=== PATIENT | female | born 1985 | race Caucasian/White ===

== ENCOUNTER 2017-06-10 14:38 | Inpatient (IN) ==
[2017-06-10] MEDS ORDERED: *HR* LORazepam 2 MG/ML VIAL IVP ONE (16:29)
[2017-06-10] MEDS ORDERED: Ondansetron 4 MG/2 ML VIAL IVP ONE (18:01)
[2017-06-10] MEDS ORDERED: *HR* HYDROmorphone (PF) 1 MG/ML SYRINGE IVP ONE ×3 (18:01→20:55)
--- NOTE | 2017-06-10 18:34 | Emergency Department Note ---
Disposition Clinical Impression: Herniation of intervertebral disc between L4 and L5, Intractable pain Disposition: Admitted As Inpatient Condition: Fair Referrals: Karin Ferguson, [facility] [Primary Care Provider] - Forms: ED Satisfaction Letter Time of Disposition: 19:06 Back Pain HPI - General Chief Complaint: ED Back Pain/Injury Stated Complaint: back pain Time Seen by Provider: 06/10/17 15:16 Source: patient Mode of arrival: ambulatory Limitations: no limitations Nursing Notes Reviewed: Yes Vital Signs Reviewed: Yes - History of Present Illness HPI Narrative: 31-year-old with severe low back pain going to the legs right greater than left. Patient has a history of a microdiscectomy a couple years ago. States the pain came back with a vengeance says she said it's worse now than it was before. Denies retention type symptoms denies any saddle anesthesia. Pt Subjective Complaint: back pain Onset (ago): day(s) (2 days) Duration: constant Similar Symptoms Previously: Yes Location: lumbar spine Pain Severity: severe Quality: sharp, aching Radiation: left leg, right leg Improves with: none Worsens with: movement Context: other (Previous disc herniation) Associated symptoms: Denies: incontinence of bowel/bladder Treatments prior to arrival: NSAIDS - Related Data Home Medications Medication Instructions Recorded Confirmed Estradiol [Climara] 1 patch TD TU 12/29/15 06/03/17 ALPRAZolam [Xanax 1 MG Tablet] 1 mg PO QID 10/26/16 06/03/17 Dicyclomine [Bentyl] 10 mg PO QID PRN 10/26/16 06/03/17 Gabapentin [Neurontin] 800 mg PO TID 10/26/16 06/03/17 Albuterol Sulfate [Albuterol 1 puff IH Q4H PRN 06/03/17 06/03/17 Inhaler] Baclofen [Lioresal] 10 mg PO TID 06/03/17 06/03/17 Previous Rx's Medication Instructions Recorded Tramadol HCl [Ultram] 50 mg PO QID PRN #14 tab 06/03/17 predniSONE [PredniSONE] 40 mg PO DAILY #10 tablet 06/03/17 Allergies Allergy/AdvReac Type Severity Reaction Status Date / Time Amoxicillin [From Augmentin] AdvReac See Verified 10/26/16 12:43 Comments clavulanic acid AdvReac See Verified 10/26/16 12:43 [From Augmentin] Comments All systems ED: reviewed and negative except as stated. Constitutional: Denies: fever, chills, weakness, weight change Eyes: Denies: eye pain, eye discharge, vision change ENT ED: Denies: ear pain, throat pain, dental pain, hearing loss, epistaxis, congestion, dysphagia Cardiovascular: Denies: chest pain, palpitations, dyspnea on exertion, edema, syncope Respiratory: Denies: cough, dyspnea, wheezes, hemoptysis, stridor Gastrointestinal: Denies: abdominal pain, nausea, vomiting, diarrhea, constipation, hematemesis, melena, hematochezia Genitourinary: Denies: dysuria, frequency, hematuria, discharge Musculoskeletal: Reports: back pain. Denies: neck pain, arthralgia, myalgia Integumentary: Denies: rash, abrasion, lesions Neurological: Denies: headache, weakness, numbness, paresthesias, confusion, abnormal gait, vertigo Psychiatric: Denies: anxiety, depression, suicidal thoughts, homicidal thoughts , auditory hallucinations, visual hallucinations Endocrine: Denies: fatigue Hematological/Lymphatic: Denies: easy bleeding, easy bruising Allergic/Immunologic: Denies: facial swelling, urticaria Past Medical History - Past Medical History Medical history: Reports: asthma, GERD Surgical history: Reports: cholecystectomy, orthopedic, other (L4-L5 microdiscectomy), MACKENZIE/BSO, other (Uterine ablation) Psychiatric history: Reports: anxiety, depression [employer] 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, other - Social History Smoking Status: Current every day smoker Smokeless Tobacco Status: No Alcohol use: Reports: none Drug use: Reports: none Physical Exam - General Limitations: no limitations General appearance: alert, in no apparent distress - Head Head exam: atraumatic, normocephalic, normal inspection - Eye Eye exam: Present: normal appearance, PERRL, EOMI - ENT ENT exam: normal exam, normal oropharynx, mucous membranes moist - Neck Neck exam: Present: normal inspection, full ROM, trachea midline - Chest Chest inspection: Present: normal inspection, symmetric chest wall rise - Respiratory Respiratory exam: Present: normal lung sounds bilaterally - Cardiovascular Cardiovascular exam: Present: regular rate, normal rhythm, normal heart sounds - Abdominal Exam Abdominal exam: Present: soft, Non-Tender. Absent: tenderness, distention, guarding, rebound, rigidity - Extremities Exam Extremities exam: Present: normal inspection, full ROM. Absent: tenderness, pedal edema - Expanded Lower Extremity Exam Neurovascular/Tendon exam: Absent: motor deficit, sensory deficit, tendon deficit Gait: antalgic - Back Exam Back exam: Present: paraspinal tenderness - Neurological Exam Neurological exam: Present: alert, oriented X3 - Psychiatric Psychiatric exam: Present: normal affect, normal mood - Skin Skin exam: Present: warm, dry, intact, normal color Course - Reevaluation(s) Reevaluation #1: 31-year-old female comes in with lower back pain radiates down the legs. Patient had a discectomy about 2 years ago. She comes in with recurrent symptoms although denies symptoms of cord compression. MRI shows a recurrent disc at L4-5 with L5 nerve root compression. Patient has severe pain will be admitted to Dr. Iniguez's service. Time: 19:06 - Consultations Consultation #1: Discussed with Dr. Iniguez, admit. Time: 19:05 Vital Signs Temperature 99.2 F 06/10/17 15:12 Pulse Rate 81 06/10/17 15:12 Respiratory Rate 18 06/10/17 15:12 Blood Pressure 159/103 06/10/17 15:12 O2 Sat by Pulse Oximetry 100 06/10/17 15:12 Temperature 99.2 F 06/10/17 15:12 Pulse Rate 81 06/10/17 15:12 Respiratory Rate 18 06/10/17 15:12 Blood Pressure 159/103 06/10/17 15:12 O2 Sat by Pulse Oximetry 100 06/10/17 15:12 Oxygen Delivery Oxygen Delivery Room Air
[2017-06-10 20:19] LABS: Basophils # 0.1 K/mcL (0.0-0.2); Basophils % 0.5 %; Eosinophils # 0.1 K/mcL (0.0-0.6); Eosinophils % 0.7 %; Hematocrit 39.1 % (35.3-44.9); Immature Granulocytes % 0.9 % (0-4); Lymphocytes # 2.3 K/mcL (0.6-4.6); Lymphocytes % 13.5 %; Mean Corpuscular HGB Conc 33.2 g/dL (31.6-35.5); Mean Corpuscular Hemoglobin 29.2 pg (28.0-33.3); Mean Corpuscular Volume 87.9 fL (83.0-100.0); Mean Platelet Volume 8.8 fL (9.4-12.4); Monocytes # 0.9 K/mcL (0.0-1.3); Monocytes % 5.2 %; Neutrophils # 13.6 K/mcL (1.6-8.9); Platelet Count 302 K/mcL (140-400); Red Blood Count 4.45 M/mcL (3.82-4.97); Red Cell Distribution Width 14.6 % (11.5-14.5); Segmented Neutrophils % 79.2 %
[2017-06-10 20:26] LABS: Prothrombin Time 10.9 Seconds (9.4-12.1)
[2017-06-10 20:29] LABS: Activated Partial Thrombo Time 26.4 Seconds (26.0-36.0)
[2017-06-10 20:31] LABS: Calcium 8.7 mg/dL (8.6-10.3); Carbon Dioxide 26 mEq/L (23-29); Chloride 103 mEq/L (98-107); Potassium 3.7 mEq/L (3.5-5.1); Sodium 135 mEq/L (136-145)
[2017-06-10 20:37] LABS: BUN/Creatinine Ratio 23 (6-26); Blood Urea Nitrogen 18 mg/dL (6-20); Glucose 93 mg/dL (70-105); Osmolality,Calculated 282 (280-300); eGFR For African Americans > 60 (> 60); eGFR For Non-African Americans > 60 (> 60)
[2017-06-11] MEDS: *HR* OxyCODONE Immed Rel 5 MG TABLET PO PRN ×5 (01:31→21:22)
[2017-06-11] MEDS: Ringers Solution, Lactated 1,000 ML IVC SCH ×2 (01:32→21:53)
[2017-06-11] MEDS: *HR* Morphine 2 MG/ML SYRINGE IVP PRN ×4 (03:47→23:21)
[2017-06-11] MEDS ORDERED: CeFAZolin Pre 2,000 MG/100 ML 2,000 MG/100 ML BAG IVPB ONE (07:00)
[2017-06-11 10:57] LABS: Bilirubin,Urine Negative (Negative); Blood,Urine Small (Negative); Clarity,Urine Cloudy (Clear); Color,Urine Yellow (Yellow); Glucose,Urine (UA) Normal (Normal); Ketones,Urine Negative (Negative); Leukocyte Esterase,Urine Trace (Negative); Nitrite,Urine Positive (Negative); PH,Urine 6.5 pH Units (5.0-8.0); Protein,Urine Negative (Neg-Trace); Urobilinogen,Urine Normal (Normal)
[2017-06-11 11:00] LABS: Bacteria,Urine Many per hpf (None-Few); Hyaline Casts,Urine None Seen per lpf (None-Few); Squamous Epithelial Cell,Urine Many per lpf (None-Few)
[2017-06-11] MEDS: Baclofen 10 MG TABLET PO SCH ×3 (12:39→21:22)
[2017-06-11] MEDS: Gabapentin 400 MG CAPSULE PO SCH ×3 (12:39→21:22)
[2017-06-11] MEDS: ALPRAZolam 1 MG TABLET PO PRN (19:18)
[2017-06-12] MEDS: Ringers Solution, Lactated 1,000 ML IVC SCH (01:00)
[2017-06-12] MEDS: *HR* Morphine 2 MG/ML SYRINGE IVP PRN ×3 (01:25→21:39)
[2017-06-12] MEDS: Temazepam 15 MG CAPSULE PO PRN ×2 (02:59→20:55)
[2017-06-12] MEDS: *HR* OxyCODONE Immed Rel 5 MG TABLET PO PRN ×4 (04:03→17:10)
[2017-06-12] MEDS: Gabapentin 400 MG CAPSULE PO SCH ×4 (08:44→20:55)
[2017-06-12] MEDS: Baclofen 10 MG TABLET PO SCH ×3 (08:44→20:55)
--- NOTE | 2017-06-12 10:01 | Spine - History & Physical Rep ---
Date of Encounter: 06/11/17 Time of Encounter: 13:05 Assessment and Plan (1) Focal motor deficit Current visit: Yes Status: Acute On exam she is in significant distress dressed and tearful. Afebrile vital signs stable. She fires all upper extremity motor groups with good strength. She has weakness in dorsiflexion of the right lower extremity which is 4 minus on a motor scale. Her hips move symmetrically. She has no clonus. She has a positive straight leg raise. She has significant guarding doing any manipulation of the right lower extremity secondary to pain. She has no clonus. Lungs are clear, cardiovascular regular rate and rhythm. Abdomen is obese, soft and nontender. MRI of the lumbar spine dated 06/10/2017 reveals a very large extruded disc at L4-5 causing central and lateral recess stenosis and displacing the traversing nerve root. There is Modic endplate degenerative changes and disc desiccation at this level. Impression: 1) recurrent lumbar disc herniation 2) lumbar radiculopathy 3) focal motor deficit 4) gait impairment 5) history of laminectomy/discectomy Plan: She is in severe, intractable pain. We will admit for current pain control. We will consider outpatient epidural steroid injections if her pain improves but she may need a revision lumbar decompression and fusion secondary to her gait impairment and concerning motor weakness which may become worsened or permanent without treatment. The patient is going to consider her options and she attempts to convalesce. (2) Impaired gait and mobility Current visit: Yes Status: Acute History of Present Illness Chief complaint: Severe back pain, can barely walk, right leg weakness HPI: Ms. Diaz is a 31 year old female with history of previous discectomy 6 months ago he was doing well and over the past 2 weeks has developed severe back pain radiating into the right lower extremity and causing gait impairment. She was seen in the emergency department last week where she was given intravenous and oral analgesic medications and released. She will return to the emergency department today due to intractable pain despite oral narcotics, and severe gait impairment as well as weakness in the right lower extremity. MRI was performed and revealed a large recurrent disc herniation and the patient was admitted for pain control and definitive management. She denies any fevers, chills, bowel bladder symptomatology. She admits to difficulty walking and weakness in the right lower extremity. Past Med Surg Social Fam HX - Past Medical History Medical history: asthma, GERD Psychiatric history: anxiety, depression - Past Surgical History Surgical History: cholecystectomy, orthopedic, other, MACKENZIE/BSO, other - Social History Smoking Status: Current every day smoker Packs per day: 1 Smokeless Tobacco Status: No Alcohol use: none Drug use: none - Family History Mother Hx Family Endocrine Disorder: Yes (DM) Medications and Allergies Estradiol [Climara] 2 patch TD TU 12/29/15 [History] ALPRAZolam [Xanax 1 MG Tablet] 1 mg PO QID PRN 10/26/16 [History] Dicyclomine [Bentyl] 10 mg PO QID PRN 10/26/16 [History] Gabapentin [Neurontin] 800 mg PO QID 10/26/16 [History] Albuterol Sulfate [Albuterol Inhaler] 2 puff IH Q4H PRN 06/03/17 [History] Baclofen [Lioresal] 10 mg PO TID 06/11/17 [History] 3 Allergy/AdvReac Type Severity Reaction Status Date / Time Amoxicillin [From Augmentin] AdvReac See Verified 10/26/16 12:43 Comments clavulanic acid AdvReac See Verified 10/26/16 12:43 [From Augmentin] Comments Results - Labs Result Diagrams: 06/10/17 20:02 06/10/17 20:02 Labs: Abnormal lab results WBC 17.2 K/mcL (4.3-11.1) H 06/10/17 20:02 RDW 14.6 % (11.5-14.5) H 06/10/17 20:02 MPV 8.8 fL (9.4-12.4) L 06/10/17 20:02 Neutrophils # 13.6 K/mcL (1.6-8.9) H 06/10/17 20:02 Sodium 135 mEq/L (136-145) L 06/10/17 20:02 Urine Clarity Cloudy (Clear) A 06/11/17 10:40 Urine Blood Small (Negative) H 06/11/17 10:40 Urine Nitrite Positive (Negative) A 06/11/17 10:40 Ur Leukocyte Esterase Trace (Negative) H 06/11/17 10:40 Urine Microscopic RBC 5-15 per hpf (0-3) H 01/05/18 10:40 Urine Microscopic WBC 5-15 per hpf (0-3) H 06/11/17 10:40 Ur Squamous Epith Cells Many per lpf (None-Few) H 06/11/17 10:40 Urine Bacteria Many per hpf (None-Few) H 06/11/17 10:40 Nasal Screen MRSA (PCR) Positive (Negative) A 06/11/17 17:05 All other labs normal. - VTE Reasons for not Prescribing Prophylaxis: Treatment not Indicated - Low risk for VTE
--- NOTE | 2017-06-12 10:10 | Spine Progress Note ---
Date of Encounter: 06/12/17 Time of Encounter: 10:08 - Assessment and Plan (1) Focal motor deficit Current Visit: Yes Status: Acute On exam she is in significant distress dressed and tearful. Afebrile vital signs stable. She fires all upper extremity motor groups with good strength. She has weakness in dorsiflexion of the right lower extremity which is 4 minus on a motor scale. Her hips move symmetrically. She has no clonus. She has a positive straight leg raise. She has significant guarding doing any manipulation of the right lower extremity secondary to pain. She has no clonus. Lungs are clear, cardiovascular regular rate and rhythm. Abdomen is obese, soft and nontender. MRI of the lumbar spine dated 06/10/2017 reveals a very large extruded disc at L4-5 causing central and lateral recess stenosis and displacing the traversing nerve root. There is Modic endplate degenerative changes and disc desiccation at this level. Impression: 1) recurrent lumbar disc herniation 2) lumbar radiculopathy 3) focal motor deficit 4) gait impairment 5) history of laminectomy/discectomy Plan: She is in severe, intractable pain. We will admit for current pain control. We will consider outpatient epidural steroid injections if her pain improves but she may need a revision lumbar decompression and fusion secondary to her gait impairment and concerning motor weakness which may become worsened or permanent without treatment. The patient is going to consider her options and she attempts to convalesce. (2) Impaired gait and mobility Current Visit: Yes Status: Acute Subjective Principal diagnosis: Recurrent lumbar disc herniation Interval history: She continues with severe pain despite narcotics, muscle relaxants, anxiolytics , sleep aids. Afebrile vital signs stable. She has a positive straight leg raise on the right. She persists with weakness in dorsiflexion. We had a long discussion she would like to continue attempts at intravenous and oral analgesics for pain control. She would like to proceed with surgical intervention due to persistence of symptoms and concerning weakness. We will consider surgery in the form of a posterior lumbar interbody fusion L4-L5 after preoperative optimization and clearance. Objective Vital signs: Vital Signs Temp Pulse Resp BP Pulse Ox 06/12/17 09:02 98.6 F 107 15 118/87 96 06/12/17 08:46 98.6 F 107 15 118/87 96 06/12/17 04:03 92 109/69 06/11/17 23:27 99 F 75 14 126/89 96 06/11/17 20:09 98.0 F 89 17 120/75 100 06/11/17 14:49 98.5 F 89 18 130/84 99 06/11/17 11:11 98.3 F 80 20 125/85 99 Intake and Output 06/11/17 06/12/17 06/12/17 23:59 07:59 15:59 Intake Total 1480 / 1480 400 / 400 Balance 1480 / 1480 400 / 400 Intake: IV Fluids 1000 / 1000 Lactated Ringers 1,000 ML @ 75 1000 / 1000 mls/hr IVC .[id number] TRACIE Rx#: [id number] Oral 480 / 480 400 / 400 Other: Meal Dinner Percent of Meal Consumed 100% # Voids 2 - Labs CBC & BMP: 06/10/17 20:02 06/10/17 20:02 Labs: Abnormal lab results WBC 17.2 K/mcL (4.3-11.1) H 06/10/17 20:02 RDW 14.6 % (11.5-14.5) H 06/10/17 20:02 MPV 8.8 fL (9.4-12.4) L 06/10/17 20:02 Neutrophils # 13.6 K/mcL (1.6-8.9) H 06/10/17 20:02 Sodium 135 mEq/L (136-145) L 06/10/17 20:02 Urine Clarity Cloudy (Clear) A 06/11/17 10:40 Urine Blood Small (Negative) H 06/11/17 10:40 Urine Nitrite Positive (Negative) A 06/11/17 10:40 Ur Leukocyte Esterase Trace (Negative) H 06/11/17 10:40 Urine Microscopic RBC 5-15 per hpf (0-3) H 06/11/17 10:40 Urine Microscopic WBC 5-15 per hpf (0-3) H 06/11/17 10:40 Ur Squamous Epith Cells Many per lpf (None-Few) H 06/11/17 10:40 Urine Bacteria Many per hpf (None-Few) H 06/11/17 10:40 Nasal Screen MRSA (PCR) Positive (Negative) A 06/11/17 17:05 Consult Discharge Plan - Plan Referrals: Karin Ferguson, [facility] [Primary Care Provider] -
[2017-06-12] MEDS: ALPRAZolam 1 MG TABLET PO PRN ×2 (10:30→23:09)
[2017-06-13] MEDS: *HR* Morphine 2 MG/ML SYRINGE IVP PRN ×3 (04:38→20:03)
[2017-06-13] MEDS: *HR* OxyCODONE Immed Rel 5 MG TABLET PO PRN ×4 (06:21→23:05)
[2017-06-13] MEDS: Gabapentin 400 MG CAPSULE PO SCH ×4 (08:06→20:03)
[2017-06-13] MEDS: Baclofen 10 MG TABLET PO SCH ×3 (08:06→20:03)
[2017-06-13] MEDS: ALPRAZolam 1 MG TABLET PO PRN ×2 (10:38→23:57)
--- NOTE | 2017-06-13 21:46 | Spine Progress Note ---
Date of Encounter: 06/13/17 Time of Encounter: 21:44 - Assessment and Plan (1) Focal motor deficit Current Visit: Yes Status: Acute On exam she is in significant distress dressed and tearful. Afebrile vital signs stable. She fires all upper extremity motor groups with good strength. She has weakness in dorsiflexion of the right lower extremity which is 4 minus on a motor scale. Her hips move symmetrically. She has no clonus. She has a positive straight leg raise. She has significant guarding doing any manipulation of the right lower extremity secondary to pain. She has no clonus. Lungs are clear, cardiovascular regular rate and rhythm. Abdomen is obese, soft and nontender. MRI of the lumbar spine dated 06/10/2017 reveals a very large extruded disc at L4-5 causing central and lateral recess stenosis and displacing the traversing nerve root. There is Modic endplate degenerative changes and disc desiccation at this level. Impression: 1) recurrent lumbar disc herniation 2) lumbar radiculopathy 3) focal motor deficit 4) gait impairment 5) history of laminectomy/discectomy Plan: She is in severe, intractable pain. We will admit for current pain control. We will consider outpatient epidural steroid injections if her pain improves but she may need a revision lumbar decompression and fusion secondary to her gait impairment and concerning motor weakness which may become worsened or permanent without treatment. The patient is going to consider her options and she attempts to convalesce. (2) Impaired gait and mobility Current Visit: Yes Status: Acute Subjective Principal diagnosis: Recurrent lumbar disc herniation Interval history: Continues with severe back pain with radiation into the lower extremities right greater than left. She is desiring surgical intervention. Risks benefits possible complications and alternatives of posterior lumbar interbody fusion L4- L5 were discussed and we will plan to proceed. Objective Vital signs: Vital Signs Temp Pulse Resp BP Pulse Ox 06/13/17 18:57 97.9 F 98 18 131/85 97 06/13/17 07:19 98.1 F 101 14 124/86 98 Intake and Output 06/13/17 06/13/17 06/13/17 07:59 15:59 23:59 Intake Total 360 / 360 Balance 360 / 360 Intake: Oral 360 / 360 Other: Meal Lunch Dinner Percent of Meal Consumed 100% 100% # Voids 1 - Labs CBC & BMP: 06/10/17 20:02 06/10/17 20:02 Labs: Abnormal lab results WBC 17.2 K/mcL (4.3-11.1) H 06/10/17 20:02 RDW 14.6 % (11.5-14.5) H 06/10/17 20:02 MPV 8.8 fL (9.4-12.4) L 06/10/17 20:02 Neutrophils # 13.6 K/mcL (1.6-8.9) H 06/10/17 20:02 Sodium 135 mEq/L (136-145) L 06/10/17 20:02 Urine Clarity Cloudy (Clear) A 06/11/17 10:40 Urine Blood Small (Negative) H 06/11/17 10:40 Urine Nitrite Positive (Negative) A 06/11/17 10:40 Ur Leukocyte Esterase Trace (Negative) H 06/11/17 10:40 Urine Microscopic RBC 5-15 per hpf (0-3) H 06/11/17 10:40 Urine Microscopic WBC 5-15 per hpf (0-3) H 06/11/17 10:40 Ur Squamous Epith Cells Many per lpf (None-Few) H 06/11/17 10:40 Urine Bacteria Many per hpf (None-Few) H 06/11/17 10:40 Nasal Screen MRSA (PCR) Positive (Negative) A 06/11/17 17:05 Consult Discharge Plan - Plan Referrals: Karin Ferguson, [employer] [Primary Care Provider] -
[2017-06-14] MEDS: *HR* Morphine 2 MG/ML SYRINGE IVP PRN ×4 (06:14→20:27)
[2017-06-14] MEDS: Gabapentin 400 MG CAPSULE PO SCH ×2 (08:42→11:32)
[2017-06-14] MEDS: Baclofen 10 MG TABLET PO SCH ×2 (08:42→16:48)
[2017-06-14] MEDS: ALPRAZolam 1 MG TABLET PO PRN (08:43)
[2017-06-14] MEDS ORDERED: *HR* Propofol 200 MG/20 ML VIAL IVP ONE ×2 (13:50→15:26)
[2017-06-14] MEDS ORDERED: *HR* FentaNYL (PF) 100 MCG/2 ML VIAL ONE ×2 (13:50→16:43)
[2017-06-14] MEDS ORDERED: *HR* Midazolam HCl 2 MG/2 ML VIAL ONE (13:50)
[2017-06-14] MEDS ORDERED: *HR* Succinylcholine 200 MG/10 ML VIAL IVP ONE (13:53)
[2017-06-14] MEDS ORDERED: *HR* Remifentanil 2 MG VIAL IVP ONE (13:53)
[2017-06-14] MEDS ORDERED: Lidocaine -MPF 2% 2 ML VIAL ONE (13:55)
[2017-06-14] MEDS ORDERED: Lidocaine -MPF 4% 5 ML AMPUL ONE (13:55)
[2017-06-14] MEDS ORDERED: Ondansetron 4 MG/2 ML VIAL ONE (14:07)
[2017-06-14] MEDS ORDERED: Albuterol 2.5 MG/3 ML NEBULIZER ONE (14:18)
--- NOTE | 2017-06-14 14:23 | Anesthesia Evaluation PreOp ---
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: Denies Any Significant HX Other Medical History: Denies Any Significant HX Anesthesia History: No Prior Anesthetic Complications, Past Anesthesia Alcohol Use: none Drug use: none Medications and Allergies Estradiol [Climara] 2 patch TD TU 12/29/15 [History] ALPRAZolam [Xanax 1 MG Tablet] 1 mg PO QID PRN 10/26/16 [History] Dicyclomine [Bentyl] 10 mg PO QID PRN 10/26/16 [History] Gabapentin [Neurontin] 800 mg PO QID 10/26/16 [History] Albuterol Sulfate [Albuterol Inhaler] 2 puff IH Q4H PRN 06/03/17 [History] Baclofen [Lioresal] 10 mg PO TID 06/11/17 [History] 3 Allergy/AdvReac Type Severity Reaction Status Date / Time Amoxicillin [From Augmentin] AdvReac See Verified 10/26/16 12:43 Comments clavulanic acid AdvReac See Verified 10/26/16 12:43 [From Augmentin] Comments - Meds/Allergy Pre-op Review Medications Reviewed: Yes Allergies Reviewed: Yes Beta Blockers on Current Med List: No Anesthesia Results - Labs 06/10/17 20:02 06/10/17 20:02 Anesthesia Exam Selected Entries 06/14/17 07:33 Temperature 98.2 F Pulse Rate 91 Respiratory Rate 14 Blood Pressure 127/85 Weight: 130 kg. NPO (# of Hours): over 8 hours - HEENT Pupil (Motor): Pupils equal Mallampati: II Teeth: Normal Oral Opening: Greater than 3 - Cardiac Rhythm: Regular Murmur: None - Pulmonary Breath Sounds: bilateral Clear Respiratory Effort: Symmetrical Anesthesia Assess/Plan ASA Score: 2 Modified Golden Scale for Level of Consciousness: Anixous, agitated or restless Anesthetic Plan: General Monitoring Plan: Standard Monitors Recovery Plan: PACU (Discussed GA, risks. Agreed to proceed.)
[2017-06-14] MEDS ORDERED: Dexamethasone 4 MG/ML VIAL ONE (14:47)
[2017-06-14] MEDS ORDERED: Ondansetron 4 MG/2 ML VIAL IVP ONE (15:03)
[2017-06-14] MEDS ORDERED: *HR* Morphine 2 MG/ML SYRINGE IVP PRN (15:03)
[2017-06-14] MEDS ORDERED: *HR* Promethazine 25 MG/ML VIAL IVP PRN (15:03)
[2017-06-14] MEDS ORDERED: *HR* Rocuronium Bromide 50 MG/5 ML VIAL ONE (15:26)
[2017-06-14] MEDS: Ringers Solution, Lactated 1,000 ML IVC SCH (17:00)
[2017-06-14] MEDS ORDERED: *HR* HYDROmorphone 2 MG/ML SYRINGE ONE (17:10)
[2017-06-14] MEDS ORDERED: Neostigmine Methylsulfate 3 MG/3 ML SYRINGE ONE (17:11)
--- NOTE | 2017-06-14 17:41 | Orthopedic Operative Note ---
Date of procedure: 06/14/17 Pre-op diagnosis: Recurrent lumbar disc herniation, lumbar radiculopathy, s/p laminectomy Post-op diagnosis: same Operation/Findings: Posterior lumbar interbody fusion L4-L5: The patient successfully underwent general endotracheal anesthesia. The patient was given antibiotics prior to the start of the procedure. Compression boots and stockings were used for deep vein thrombosis prophylaxis. A Lindsay catheter was placed. Leads for neuro monitoring were placed on the upper and lower extremities. This included the cranium. The neuro monitoring personnel confirmed there were satisfactory readings prior to the start of the procedure. The patient was turned prone on the Dann table. The back was prepped and draped in the usual sterile fashion. An incision was was marked and centered over the involved L4-L5 levels in the mid line. The incision was deepened through the lumbar fascia. Bovie cautery and Sanchez elevators were used to reflect the paraspinal musculature at the lateral extent of the transverse processes of the involved L4 and L5 levels. Larissa clamps were placed over the L4 and L5 spinous processes. An intraoperative lateral fluorograph was obtained. A conversation was held between the surgeon and radiologist and both confirmed we had the correct operative levels. We then placed pedicle screws in standard fashion with the aid of fluoroscopy and anatomic landmarks. Briefly a starter awl was used. A gearshift was subsequently used to enter the missile control pilot hole via a transpedicular route into the vertebral body. The missile control pilot hole was tapped with an undersized instrument, and subsequentlyfour 6.5 x 40 mm pedicle screws were placed bilaterally at the indicated L4 and L5 levels. The screws were tested with the aid of the neurologic monitoring staff via pedicle screw stimulation. All reading suggested there was no significant cortical wall breech. The screws were also evaluated fluoro- graphically and appeared to be in satisfactory position. We then turned our attention to the decompression portion of the procedure. We removed the supraspinous and interspinous ligaments and subsequently the insertion of the ligamentum flavum on the undersurface of the proximal L4 lamina was dislodged with a curette. We then removed the ligamentum flavum as well as undercut the L4-L5 facets at this L4- L5 level to decompress the lateral recesses. We also performed a L4 laminectomy. After the decompression, which was over and above that which was required to place the interbody graft, the foramen and traversing roots at this level were found to be free and patent. We also took part of the medial facets in order to aid in the decompression. We then protected the neural elements including the thecal sac and traversing nerve root on the right with a dural retractor. We made an annulotomy into the L4-L5 disc space and then removed entire disc material using Pituitary instruments. We trialed various size grafts after the endplates were prepared for graft insertion. A 10 x 26 enter body graft fit well within the L4-L5 disc space. We obtained some bone from the right posterior superior iliac spine through us a separate incision and combined with this with the bone which we had saved from the laminectomy portion of the procedure. This autograft bone was first placed in the anterior portion of the L4-L5 disc space and additional bone was placed within the interbody graft spacer. We then placed the interbody graft spacer obliquely across the L4-L5 disc space towards the midline while protecting the neural elements with a root retractor. When the graft was found to be in satisfactory position the power distributor was removed. We then copiously irrigated the wound. We then decorticated the L4 and L5 transverse processes as well as the L4-L5 facet joints of the involved L4 and L5 levels to aid in the posterolateral fusion. We placed autograft bone in the lateral gutters over these regions. We then placed rods within the screw heads of the involved levels and first locked the distal screws and then subsequently locked the proximal screws s. We then closed the wound in layers with 1 Vicryl for the fascia, 2-0 Vicryl. Subcutaneous tissue, and Dermabond was used for skin closure. Sterile dressings were placed over the wound. The patient was turned supine on a hospital bed and extubated. All sponge instruments and needle counts were correct at the end of the procedure. The patient tolerated the procedure well without complications. Anesthesia: GETA Surgeon: Kevyn Iniguez Jr Was there an child and youth program assistant present: No Estimated blood loss (cc): 150 Specimen: None Condition: stable Disposition: PACU
[2017-06-14] MEDS: *HR* HYDROmorphone (PF) 1 MG/ML SYRINGE IVP PRN ×4 (18:00→18:35)
[2017-06-14] MEDS ORDERED: Naloxone 0.4 MG/ML INJ IVP PRN (18:05)
[2017-06-14] MEDS ORDERED: Acetaminophen 325 MG TABLET PO PRN (18:05)
[2017-06-14] MEDS ORDERED: Ondansetron 4 MG/2 ML VIAL IVP PRN (18:05)
[2017-06-14] MEDS ORDERED: Ringers Solution, Lactated 1,000 ML ONE (18:15)
[2017-06-14] MEDS ORDERED: *HR* HYDROmorphone (PF) 1 MG/ML SYRINGE ONE (18:15)
[2017-06-14] MEDS ORDERED: Acetaminophen IV 1,000 MG/100 ML INFUS..BTL IVPB ONE (18:27)
--- NOTE | 2017-06-14 18:40 | Anesthesia Evaluation Post Op ---
Date of Encounter: 06/14/17 Time of Encounter: 18:40 - Vital Signs Vital Signs: Vital Signs/O2 Sat/Glucose, Most Current Temp Pulse Resp BP Pulse Ox 06/14/17 18:25 83 16 148/91 95 06/14/17 18:15 81 16 131/91 95 06/14/17 18:05 105 16 146/91 100 06/14/17 17:55 98.2 F 98 16 134/93 100 - Lungs Lungs: Clear Ascult./Percussion - Airway Airway: Non-obstructed - Cardiovascular Regular Rate - Mental Status Mental Status: Alert & Oriented, Answers Appropriately - Pain Pain Scale: 2 - Nausea Vomiting Nausea Vomiting: Not Present - Hydration Hydration: NPO - Discharge PostOp Status: Transfer Patient to floor
[2017-06-14] MEDS: *HR* OxyCODONE Immed Rel 5 MG TABLET PO PRN (22:28)
[2017-06-15] MEDS: CeFAZolin Premix DUPLEX 2,000 MG/50 ML BAG IVPB SCH ×2 (01:13→07:34)
[2017-06-15] MEDS: *HR* Morphine 2 MG/ML SYRINGE IVP PRN ×5 (01:16→22:26)
[2017-06-15] MEDS: Ringers Solution, Lactated 1,000 ML IVC SCH (01:31)
[2017-06-15] MEDS: *HR* OxyCODONE Immed Rel 5 MG TABLET PO PRN ×5 (03:22→20:30)
[2017-06-15] MEDS ORDERED: Bacitracin 50,000 UNIT, Polymyxin B Sulfate 500,000 UNIT, Sodium Chloride IRRigation 1,... IR ONE (06:00)
[2017-06-15] MEDS ORDERED: Estradiol 0.1 MG PATCH (WEEKLY) TD SCH ×2 (18:45→22:31)
[2017-06-15] MEDS: ALPRAZolam 1 MG TABLET PO PRN (20:31)
[2017-06-16] MEDS: *HR* OxyCODONE Immed Rel 5 MG TABLET PO PRN ×4 (02:41→16:13)
[2017-06-16] MEDS: *HR* Morphine 2 MG/ML SYRINGE IVP PRN (03:44)
[2017-06-16] MEDS: ALPRAZolam 1 MG TABLET PO PRN ×2 (03:44→10:12)
--- NOTE | 2017-06-16 08:27 | Spine Progress Note ---
Date of Encounter: 06/15/17 Time of Encounter: 19:20 - Assessment and Plan (1) Focal motor deficit Current Visit: Yes Status: Acute On exam she is in significant distress dressed and tearful. Afebrile vital signs stable. She fires all upper extremity motor groups with good strength. She has weakness in dorsiflexion of the right lower extremity which is 4 minus on a motor scale. Her hips move symmetrically. She has no clonus. She has a positive straight leg raise. She has significant guarding doing any manipulation of the right lower extremity secondary to pain. She has no clonus. Lungs are clear, cardiovascular regular rate and rhythm. Abdomen is obese, soft and nontender. MRI of the lumbar spine dated 06/10/2017 reveals a very large extruded disc at L4-5 causing central and lateral recess stenosis and displacing the traversing nerve root. There is Modic endplate degenerative changes and disc desiccation at this level. Impression: 1) recurrent lumbar disc herniation 2) lumbar radiculopathy 3) focal motor deficit 4) gait impairment 5) history of laminectomy/discectomy Plan: She is in severe, intractable pain. We will admit for current pain control. We will consider outpatient epidural steroid injections if her pain improves but she may need a revision lumbar decompression and fusion secondary to her gait impairment and concerning motor weakness which may become worsened or permanent without treatment. The patient is going to consider her options and she attempts to convalesce. (2) Impaired gait and mobility Current Visit: Yes Status: Acute Subjective Principal diagnosis: Recurrent lumbar disc herniation Interval history: The patient is without complaints. Afebrile vital signs are stable. Dressing is clean dry and intact. Neurovascularly intact with regard to bilateral lower extremities. Fires all upper and lower extremity motor groups. Assessment : stable. Plan mobilize ,continue analgesics, discharge planning. Objective Vital signs: Vital Signs Temp Pulse Resp BP Pulse Ox 06/16/17 07:00 98.7 F 89 16 138/84 99 06/16/17 03:38 98.8 F 98 18 133/87 100 06/15/17 23:32 98.0 F 109 19 96/63 96 06/15/17 19:12 98.4 F 94 17 110/70 100 06/15/17 16:02 99.1 F 88 16 116/80 97 06/15/17 11:43 99.0 F 81 17 113/80 99 Intake and Output 06/15/17 06/16/17 06/16/17 23:59 07:59 15:59 Output Total 450 / 450 Balance -450 / -450 Output: Urine 450 / 450 Other: # Voids 1 - Labs CBC & BMP: 06/10/17 20:02 06/10/17 20:02 Labs: Abnormal lab results WBC 17.2 K/mcL (4.3-11.1) H 06/10/17 20:02 RDW 14.6 % (11.5-14.5) H 06/10/17 20:02 MPV 8.8 fL (9.4-12.4) L 06/10/17 20:02 Neutrophils # 13.6 K/mcL (1.6-8.9) H 06/10/17 20:02 Sodium 135 mEq/L (136-145) L 06/10/17 20:02 POC Glucose 109 (58-89) H 06/15/17 07:22 Urine Clarity Cloudy (Clear) A 06/11/17 10:40 Urine Blood Small (Negative) H 06/11/17 10:40 Urine Nitrite Positive (Negative) A 06/11/17 10:40 Ur Leukocyte Esterase Trace (Negative) H 06/11/17 10:40 Urine Microscopic RBC 5-15 per hpf (0-3) H 06/11/17 10:40 Urine Microscopic WBC 5-15 per hpf (0-3) H 06/11/17 10:40 Ur Squamous Epith Cells Many per lpf (None-Few) H 06/11/17 10:40 Urine Bacteria Many per hpf (None-Few) H 06/11/17 10:40 Nasal Screen MRSA (PCR) Positive (Negative) A 06/11/17 17:05 Consult Discharge Plan - Plan Referrals: Karin Ferguson, [employer] [Primary Care Provider] -
[2017-06-16 14:08] VITALS: BP 141/82
--- NOTE | 2017-06-16 15:13 | Discharge Summary ---
Date of Encounter: 06/16/17 Time of Encounter: 15:11 - Discharge Diagnosis (1) Focal motor deficit Priority: Secondary Status: Acute (2) Impaired gait and mobility Priority: Secondary Status: Acute - Discharge Medications Prescriptions: OxyCODONE Immed Rel [Roxicodone 5 MG] 10 mg PO Q4HR PRN #30 tablet PRN Reason: Option A: Severe pain (7-10) Home Medications: Estradiol [Climara] 2 patch TD TU 12/29/15 [History] ALPRAZolam [Xanax 1 MG Tablet] 1 mg PO QID PRN 10/26/16 [History] Dicyclomine [Bentyl] 10 mg PO QID PRN 10/26/16 [History] Gabapentin [Neurontin] 800 mg PO QID 10/26/16 [History] Albuterol Sulfate [Albuterol Inhaler] 2 puff IH Q4H PRN 06/03/17 [History] Baclofen [Lioresal] 10 mg PO TID 06/11/17 [History] OxyCODONE Immed Rel [Roxicodone 5 MG] 10 mg PO Q4HR PRN #30 tablet 06/16/17 [Rx] Allergies/Adverse Reactions: 3 Allergy/AdvReac Type Severity Reaction Status Date / Time Amoxicillin [From Augmentin] AdvReac See Verified 10/26/16 12:43 Comments clavulanic acid AdvReac See Verified 10/26/16 12:43 [From Augmentin] Comments - Impressions ITS Impressions Fluoroscopy 06/14/17 15:07 IMPRESSION: Intraprocedural fluoroscopic spot images as above. See separate procedure report for more information. D/ / Scott Pinto MD / Scott Pinto MD Interpreting Provider: Scott Pinto MD Lumbar Spine X-Ray 06/14/17 15:07 IMPRESSION: Intraprocedural fluoroscopic spot images as above. See separate procedure report for more information. D/ / Scott Pinto MD / Scott Pinto MD Interpreting Provider: Scott Pinto MD Lumbar Spine X-Ray 06/14/17 17:20 IMPRESSION: Single image demonstrating posterior fusion without definite evidence of hardware complication. D/ / Mp Herrera MD / Mp Herrera MD Interpreting Provider: Mp Herrera MD Date of admission: 06/14/17 14:00 Primary care physician: Karin Ferguson CNP Consults: 06/14/17 18:05 Consult to Occupational Therapy [CONS] Routine Comment: Evaluate, develop and implement POC Reason for Consult: Postoperative rehabilitation Consult to Physical Therapy [CONS] Routine Comment: Evaluate, develop and implement POC Reason for Consult: Postoperative rehabilitation Consult to Spine Navigator [CONS] [CONS] Routine - Patient Status Disposition: Home, Self-Care Condition: Good Functional capacity at discharge: independent ambulation Overall status at discharge: patient is progressing back to baseline - Discharge Instructions Follow Up With: Karin Ferguson CNP [Primary Care Provider] - - Diet and Activity Activity: as per physical therapy Diet: advance to your usual diet - Hospital Course Hospital course: Ms. Diaz is a 31 year old female the patient was admitted for pain control and definitive management. The patient had an uneventful postoperative course. Progressed from intravenous analgesic needs to oral analgesic needs only. Remained neurovascularly intact and mobilized satisfactorily. All intraoperative and/or postoperative radiographic studies were satisfactory. Patient is discharged with plan for rehabilitation and follow-up in 2 weeks post discharge on analgesic medication and patient's home medications. - Time Spent with Patient Total time spent providing and/or coordinating discharge services: - VTE Reasons for not Prescribing Prophylaxis: Treatment not Indicated - Low risk for VTE Documentation of Mechanical Device: Intermittent pneumatic compression device
== END 2017-06-16 18:29 | disposition home or self-care (01) | DRG 304 ==
LOC: EMEROO 14:38 → 3NENU 14:38
PROVIDERS: ADMIT Orthopaedic Surgery Orthopaedic Surgery of the Spine; ATTEND Orthopaedic Surgery Orthopaedic Surgery of the Spine